=== PATIENT | male | born 1970 | race Caucasian/White ===

== ENCOUNTER 2022-09-02 07:07 | Outpatient (CLI) | payer BC, SELFPAY ==
--- NOTE | 2022-09-02 07:17 | P.ANHP_ITS ---
HPI - Pre-Anesthesia History of Present Illness Time Seen by Provider: 07:57 Date Seen: 09/02/22 Date of service: 09/02/22 Reason for visit: screening colonoscopy Source: patient and old records reviewed Review of Systems Status of ROS Reports: 10 or more systems reviewed and unremarkable except as noted in History and below [facility] Medical History (Updated 09/02/22 @ 07:18 by Baltazar Johnston MD) Encounter for preventive care ?Z00.00 - Encounter for general adult medical examination without abnormal findings (ICD-10) Screening for prostate cancer ?Z12.5 - Encounter for screening for malignant neoplasm of prostate (ICD-10) Screening for diabetes mellitus ?Z13.1 - Encounter for screening for diabetes mellitus (ICD-10) Screening for hyperlipidemia ?Z13.220 - Encounter for screening for lipoid disorders (ICD-10) Screening for colon cancer ?Z12.11 - Encounter for screening for malignant neoplasm of colon (ICD-10) Family History (Updated 07/24/22 @ 15:23 by Shea Quinones MD) Father Pulmonary emboli Social History Smoking Status: Never smoker Little interest or pleasure in doing things: not at all Feeling down, depressed, or hopeless: not at all Meds Home Medications and Allergies Allergies Allergy/AdvReac Type Severity Reaction Status Date / Time No Known Drug Allergies Allergy Verified 07/24/22 15:08 Exam Const Documenting provider has reviewed patient's vital signs: yes Common normals: no apparent distress, oriented x3, healthy appearing, alert and well nourished General appearance: cooperative and comfortable Orientation/consciousness: Yes awake HENMT Common normals: normocephalic Head and scalp: normocephalic Neck & C-Spine Common normals: full ROM Chest Chest: symmetrical chest wall rise Resp Common normals: normal respiratory effort, no retractions, no use of accessory muscles and clear to auscultation bilaterally Auscultation: clear to auscultation bilaterally Cardio Common normals: regular rate, regular rhythm, S1 normal heart sound, S2 normal heart sound and no murmurs Rate: regular rate Rhythm: regular rhythm Heart sounds: S1 normal and S2 normal Neuro Common normals: oriented x3 Sensorium/orientation: awake and alert Assessment and Plan Assessment and plan (1) Encounter for screening colonoscopy: Status: Acute Plan no contraindication to proceeding
--- NOTE | 2022-09-02 08:34 | W.ANESCHARGE ---
Anesthesia Charges Start Date/Time Anesthesia Start Date: 09/02/22 Anesthesia Start Time: 08:00 Stop Date/Time Anesthesia Stop Date: 09/02/22 Anesthesia Stop Time: 08:33
--- NOTE | 2022-09-02 08:39 | W.ANESCHARGE ---
Anesthesia Charges Start Date/Time Anesthesia Start Date: 09/02/22 Anesthesia Start Time: 08:00 Stop Date/Time Anesthesia Stop Date: 09/02/22 Anesthesia Stop Time: 08:33
== END 2022-09-02 07:08 | disposition home or self-care (01) ==
LOC: OP CLINIC 07:08
PROVIDERS: PCP Emergency Medicine; Visit Provider Surgery
DX: Z12.11 Encounter for screening for malignant neoplasm of colon (principal); K64.4 Residual hemorrhoidal skin tags; K57.30 Diverticulosis of large intestine without perforation or abscess without bleeding
CPT/HCPCS: 45378; 811; 812; J2704

== ENCOUNTER 2022-09-12 09:01 | Outpatient (CLI) | payer BC, SELFPAY | END 2022-09-12 09:02 | disposition home or self-care (01) | LOC: NFLDREF 09-15 08:46 | PROVIDERS: PCP Emergency Medicine; Visit Provider Emergency Medicine | DX: Z13.1 Encounter for screening for diabetes mellitus (principal); Z12.5 Encounter for screening for malignant neoplasm of prostate; Z13.6 Encounter for screening for cardiovascular disorders | CPT/HCPCS: 80048; 80061; 84153 ==